=== PATIENT | female | born 1995 | race Caucasian/White ===

== ENCOUNTER 2020-01-02 09:16 | Emergency (ER) | payer BC, SELFPAY ==
--- NOTE | ~2020-01-02 | XR_ITS ---
EXAMINATION: XR chest 2V DATE: 01/02/2020 10:06 INDICATION: Shortness of breath and cough. TECHNIQUE: Frontal and lateral views of the chest were obtained. COMPARISON: Chest 2 views 10/02/2018 FINDINGS: The chest demonstrates clear lungs without pneumonia, pleural effusion, or pneumothorax. Th e heart size is normal. There is an old healed left rib fracture. IMPRESSION: 1. No acute cardiopulmonary disease. Reviewed, dictated and finalized at location A.
[2020-01-02 09:30] VITALS: BP 140/77; PULSE 110; RESP 22; TEMP 37.3; O2SAT 98
--- NOTE | 2020-01-02 09:53 | ED.URI ---
HPI - URI/Sore Throat General Chief Complaint: Upper Respiratory Infection Stated Complaint: Sore throat, SOB, fever Time Seen by Provider: 01/02/20 09:38 Source: patient and RN notes reviewed Mode of arrival: ambulatory Limitations: no limitations History of Present Illness HPI Narrative: Patient presents today with a 5-day history of low-grade fever with a T-max of 100.1, frontal headache and sinus pressure with mild productive cough. Patient reports that occasionally she has, black specks in her sputum. Also complains of a 2-day history of sore throat. States she became short of breath with exertion yesterday. She has been taking Tylenol without relief. Denies history of seasonal allergies. Reports exercise-induced asthma, migraines, anxiety, and bipolar disorder. Patient states she was exposed to a child of a coworker that recently tested positive for COVID-19. MD elicited complaint: sore throat Related Data Home Medications Medication Instructions Recorded Confirmed L norgest/e.estradiol-e.estrad 1 tablet PO DAILY 01/02/20 01/02/20 [Rivelsa] nortriptyline 10 mg PO DAILY 01/02/20 01/02/20 Allergies Allergy/AdvReac Type Severity Reaction Status Date / Time azithromycin Allergy Intermediate Rash Verified 01/02/20 09:36 Review of Systems Review of Systems: Narrative: CONSTITUTIONAL: Denies body aches, chills, or sweats.+ Fever EYES: Denies visual changes, redness, or discharge. ENT: Denies rhinorrhea, otalgia. + Congestion, sinus pressure CARDIOVASCULAR: Denies chest pain, palpitations, or edema. RESPIRATORY: + Cough, shortness of breath with exertion GASTROINTESTINAL: Denies abdominal pain, nausea, vomiting, or diarrhea. GENITOURINARY: Denies dysuria or hematuria. SKIN: Denies rash, itching, or wounds. MUSCULOSKELETAL: Denies back pain, joint pain, or myalgia. NEUROLOGIC: Denies numbness, tingling, or weakness. + Headache PSYCH: Denies depression or anxiety. [facility] Past Medical History Medical History (Updated 01/02/20 @ 10:22 by Nidhi Ramirez, DOCUMENT CONTROL MANAGER, BC) Anxiety Bipolar disorder Exercise-induced asthma Migraines Comments At time of signature, I have reviewed and agree with nursing past medical, surgical, social and family history unless otherwise noted. Please see nursing chart for further information. There is no relevant family history pertinent to the presenting complaint Exam Narrative: Exam Narrative: GENERAL: Well-appearing, well-nourished, and in no acute distress. HEAD: Normocephalic, atraumatic. EYES: EOMI. No redness or drainage. Conjunctivae normal. ENT: Mucous membranes pink and moist. Nares clear. No rhinorrhea. TMs normal bilaterally. Throat normal with moderate amount of white postnasal drainage. Uvula midline. NECK: Normal AROM. Supple. No lymphadenopathy. CHEST: No respiratory distress. Clear to auscultation. HEART: Regular rate and rhythm. No murmur appreciated. Normal peripheral pulses. EXTREMITIES: Normal range of motion. No edema. SKIN: Warm, dry, no rash. Capillary refill normal. Normal skin turgor. NEURO: No focal deficits. Alert and oriented x3. Gait steady. PSYCH: Normal affect. No signs of depression or anxiety. Course Course Emergency Course: We will fax an order to [facility] COVID-19 testing director federal. Due to recent exposure and symptoms, patient may have a possible COVID-19 infection. Signs and symptoms discussed with patient. Patient educated to self-isolate in a room in his/her home away from others they live with. Use mask if available. Patient was advised not to leave house for any reason ? Self-treatment discussed including Tylenol for fever, pain, or myalgia, and cough cold medications for symptoms. Patient to check temperature daily and monitor for symptoms of respiratory distress. Patient should check in daily with primary care office/system via phone/virtual platform ? Nature of the disease to cause severe respiratory distress
--- NOTE | 2020-01-02 10:56 | PC.NURSE ---
1030 noted following discharge pt stated she may not go for covid-testing at this time as insructed/ordered.
== END 2020-01-02 10:25 | disposition home or self-care (01) ==
PROVIDERS: Emergency Provider Nurse Practitioner
DX: J40 Bronchitis, not specified as acute or chronic (principal); J30.9 Allergic rhinitis, unspecified; Z20.828 Contact with and (suspected) exposure to other viral communicable diseases; J45.990 Exercise induced bronchospasm; F31.9 Bipolar disorder, unspecified
CPT/HCPCS: 71046; 87081; 87880; 99213; G0463

== ENCOUNTER 2020-04-15 11:15 | Emergency (ER) | payer BC, SELFPAY ==
--- NOTE | ~2020-04-15 | XR_ITS ---
EXAMINATION: XR abdomen/kub 1V INDICATION: Constipation and left lower quadrant pain TECHNIQUE: Supine views of the abdomen were obtained on 2 radiographs. COMPARISON: None FINDINGS: A moderate volume of colonic stool is present. There are no dilated loops of bowel. The vis ualized osseous structures are unremarkable. No abnormal calcifications are identified. IMPRESSION: 1. Constipation. Reviewed, dictated and finalized at location A. OY OPERATOR IMPRESSION: 1. Constipation.
[2020-04-15 11:35] VITALS: BP 180/92; PULSE 154; RESP 14; TEMP 37.5; O2SAT 100
--- NOTE | 2020-04-15 12:28 | ED.ABDPAIN ---
HPI - Abdominal Pain General Chief Complaint: Abdominal Pain Stated Complaint: abd pain Time Seen by Provider: 04/15/20 12:19 Source: patient and RN notes reviewed Mode of arrival: ambulatory Limitations: no limitations History of Present Illness HPI narrative: Patient presents today complaining of left-sided abdominal pain intermittently x2 weeks, worse this morning. States that she has had 2 episodes where she is doubled over in pain. She has bowel movements every day, most of which are very hard. Typically pain resolves when she has a bowel movement, but then returns later. She has been taking Tylenol for pain, which does help. Reports a history of irritable bowel syndrome in her family, but she has never been formally diagnosed. MD elicited complaint: abdominal pain Related Data Home Medications Medication Instructions Recorded Confirmed L norgest/e.estradiol-e.estrad 1 tablet PO DAILY 01/02/20 01/02/20 [Rivelsa] nortriptyline 10 mg PO DAILY 01/02/20 01/02/20 tramadol 50 mg PO Q4H PRN 04/15/20 04/15/20 Allergies Allergy/AdvReac Type Severity Reaction Status Date / Time azithromycin Allergy Intermediate Rash Verified 01/02/20 09:36 Review of Systems Review of Systems: Narrative: CONSTITUTIONAL: Denies body aches, fever, chills, or sweats. EYES: Denies visual changes, redness, or discharge. ENT: Denies rhinorrhea, congestion, sore throat, or otalgia. CARDIOVASCULAR: Denies chest pain, palpitations, or edema. RESPIRATORY: Denies cough or dyspnea. GASTROINTESTINAL: Denies nausea, vomiting, or diarrhea.+ Abdominal pain, constipation GENITOURINARY: Denies dysuria or hematuria. SKIN: Denies rash, itching, or wounds. MUSCULOSKELETAL: Denies back pain, joint pain, or myalgia. NEUROLOGIC: Denies headache, numbness, tingling, or weakness. PSYCH: Denies depression or anxiety. [facility] Past Medical History Medical History (Updated 04/15/20 @ 13:01 by Nidhi Ramirez, PACKAGE DRIER, ) Anxiety Bipolar disorder Exercise-induced asthma Migraines Comments At time of signature, I have reviewed and agree with nursing past medical, surgical, social and family history unless otherwise noted. Please see nursing chart for further information. There is no relevant family history pertinent to the presenting complaint Exam Narrative: Exam Narrative: GENERAL: Well-appearing, well-nourished, and in no acute distress. HEAD: Normocephalic, atraumatic. EYES: EOMI. No redness or drainage. Conjunctivae normal. ENT: Mucous membranes pink and moist. NECK: Normal AROM. Supple. No lymphadenopathy. CHEST: No respiratory distress. Clear to auscultation. HEART: Regular rate and rhythm. No murmur appreciated. Normal peripheral pulses. ABDOMEN: Soft, nondistended, normal active bowel sounds. + Left abdominal tenderness. MUSCULOSKELETAL: No bony tenderness. EXTREMITIES: Normal range of motion. No edema. SKIN: Warm, dry, no rash. Capillary refill normal. Normal skin turgor. NEURO: No focal deficits. Alert and oriented x3. Gait steady. PSYCH: Normal affect. No signs of depression or anxiety. Course Vital Signs Vital signs: Vital Signs Temperature 99.5 F 04/15/20 11:35 Pulse Rate 154 H 04/15/20 11:35 Respiratory Rate 14 04/15/20 11:35 Blood Pressure 180/92 H 04/15/20 11:35 Pulse Oximetry 100 04/15/20 11:35 Temperature 99.5 F 04/15/20 11:35 Pulse Rate 100 04/15/20 12:36 Respiratory Rate 18 04/15/20 12:36 Blood Pressure 128/76 04/15/20 12:36 Pulse Oximetry 100 04/15/20 11:35 Reviewed. Pt has been instructed to follow up with her PCP regarding her elevated blood pressure today. MDM - Abdominal Pain Differential Diagnosis Differential diagnosis: Likely abdominal pain, constipation, diverticulitis and other (Irritable bowel syndrome) Imaging Data Radiologist's impression: ITS Impressions Abdomen X-Ray 04/15/20 12:50 IMPRESSION: 1. Constipation. Critical Care Time Critical Care T
[2020-04-15 12:36] VITALS: BP 128/76; PULSE 100; RESP 18
== END 2020-04-15 13:05 | disposition home or self-care (01) ==
PROVIDERS: Emergency Provider Nurse Practitioner; PCP Emergency Medicine
DX: K59.00 Constipation, unspecified (principal); J45.990 Exercise induced bronchospasm
CPT/HCPCS: 74018; 99213; G0463

== ENCOUNTER 2022-02-14 12:31 | Emergency (ER) | payer OTHER, BC, SELFPAY ==
--- NOTE | ~2022-02-14 | XR_ITS ---
EXAMINATION: XR hand RT min 3V DATE: 02/14/2022 12:52 INDICATION: Right hand swelling post fall TECHNIQUE: Posteroanterior, oblique and lateral views of the right hand were obtained. COMPARISON: None. FINDINGS: Bone alignment is normal. Small calcific density along the radial margin of the base of the third pro ximal phalanx without evident donor site to suggest acute fracture in this more likely either a small degenerative ossicle or heterotopic ossification related to chronic injury to the radial collateral ligament. No other lesions suspicious for fracture identified. Joint spaces are normal. Mild soft tis briana swelling over the dorsum of the hand. IMPRESSION: 1. Tiny calcific density at the radial side of the base of the third proximal phalanx without evident donor site to suggest acute fracture and would favor either degenerative loose body or heterotopic o ssification related to chronic injury to the radial collateral ligament complex. Reviewed, dictated and finalized at location A. IMPRESSION: 1. Tiny calcific density at the radial side of the base of the third proximal p halanx without evident donor site to suggest acute fracture and would favor eit her degenerative loose body or heterotopic ossification related to chronic inju ry to the radial collateral ligament complex.
[2022-02-14 12:43] VITALS: BP 125/79; PULSE 101; RESP 16; TEMP 36.6; O2SAT 99
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
== END 2022-02-14 14:25 | disposition home or self-care (01) ==
PROVIDERS: Emergency Provider Nurse Practitioner; PCP Emergency Medicine
DX: S62.91XA Unspecified fracture of right hand, initial encounter for closed fracture (principal); W19.XXXA Unspecified fall, initial encounter; J45.990 Exercise induced bronchospasm; F41.9 Anxiety disorder, unspecified
CPT/HCPCS: 29125; 73130; 99214; G0463

== ENCOUNTER 2022-02-17 09:39 | Emergency (ER) | payer BC, SELFPAY ==
[2022-02-17 09:41] VITALS: BP 130/93; PULSE 100; RESP 16; TEMP 36.2; O2SAT 100
--- NOTE | 2022-02-17 11:55 | ED.GENADULT ---
HPI - General Adult General Chief complaint: Extremity Injury, Upper Stated complaint: fractured right hand, OCL, numbness Time Seen by Provider: 02/17/22 10:54 History of Present Illness HPI narrative: 26-year-old female presents to the emergency department for evaluation of some tingling to her right thumb. Patient states that she does have a fracture of her right hand. Patient does have an OCL and Donavon wrap in place. Patient denies any worsening pain but states that she had some tingling in her thumb so she presented to the emergency department for evaluation and per her discharge instructions. Related Data Home Medications Medication Instructions Recorded Confirmed escitalopram oxalate 10 mg tablet 10 mg PO DAILY 02/14/22 02/14/22 norethindrone (contraceptive) 0.35 0.35 mg PO DAILY 02/14/22 02/14/22 mg tablet venlafaxine 150 mg 150 mg PO DAILY 02/14/22 02/14/22 capsule,extended release 24 hr Allergies Allergy/AdvReac Type Severity Reaction Status Date / Time azithromycin Allergy Intermediate Rash Verified 02/17/22 10:48 buprenorphine Allergy Other Verified 02/17/22 10:48 Review of Systems Review of Systems: CONSTITUTIONAL: Denies fever, chills, or sweats. SKIN: Denies rash or itching. MUSCULOSKELETAL: See HPI NEUROLOGIC: Denies headache, numbness, or weakness. [facility] Past Medical History Medical History Anxiety Bipolar disorder Exercise-induced asthma Migraines Social History Social History (Updated 02/14/22 @ 13:27 by Elba Castaneda CNP) Smoking status: Never smoker Alcohol intake: never Exam Narrative: APPEARANCE: Well appearing, no pain, no distress, well-nourished. HEAD: normocephalic, atraumatic. NECK: Supple. No adenopathy, no masses. RESPIRATORY: Airway patent, respirations nonlabored. Clear to auscultation bilaterally, no rales, rhonchi, wheezing. CARDIOVASCULAR: Regular rate and rhythm without murmurs rubs or gallops. ABDOMINAL: Soft, nontender, nondistended, normal bowel sounds MUSCULOSKELETAL: Moves all extremities. Normal cap refill. Subjective decrease sensation of the thumb. Normal range of motion. Increase to light touch. NEURO: Alert. Cranial nerves II through XII intact. Grossly intact SKIN: Warm, dry. Normal Color Course Course Emergency Course: Donavon wrap was removed. Patient does have some subjective decrease sensation over the left thumb but denies any other numbness or tingling. Patient is intact to light touch. Patient has strong cap refills for all fingers. Patient's DONAVON wraps were replaced and patient was encouraged to have close follow-up as scheduled. Vital Signs Vital signs: Vital Signs Temperature 97.2 F L 02/17/22 09:41 Pulse Rate 100 02/17/22 09:41 Respiratory Rate 16 02/17/22 09:41 Blood Pressure 130/93 H 02/17/22 09:41 Pulse Oximetry 100 02/17/22 09:41 Oxygen Delivery Room Air 02/17/22 09:41 Temperature 97.2 F L 02/17/22 09:41 Pulse Rate 100 02/17/22 09:41 Respiratory Rate 16 02/17/22 09:41 Blood Pressure 130/93 H 02/17/22 09:41 Pulse Oximetry 100 02/17/22 09:41 Oxygen Delivery Room Air 02/17/22 09:41 Medical Decision Making Vital Signs Vital Signs: Vital Signs Temperature 97.2 F L 02/17/22 09:41 Pulse Rate 100 02/17/22 09:41 Respiratory Rate 16 02/17/22 09:41 Blood Pressure 130/93 H 02/17/22 09:41 Pulse Oximetry 100 02/17/22 09:41 Oxygen Delivery Room Air 02/17/22 09:41 Temperature 97.2 F L 02/17/22 09:41 Pulse Rate 100 02/17/22 09:41 Respiratory Rate 16 02/17/22 09:41 Blood Pressure 130/93 H 02/17/22 09:41 Pulse Oximetry 100 02/17/22 09:41 Oxygen Delivery Room Air 02/17/22 09:41 Discharge Plan Discharge Clinical Impression: Numbness and tingling of right thumb Patient Disposition: Home, Self-Care Condition: Stable Instructions: Antibiotic Form, Arm Fracture in Adults (ED), Splint
== END 2022-02-17 12:05 | disposition home or self-care (01) ==
PROVIDERS: Emergency Provider Emergency Medicine; PCP Emergency Medicine
DX: R20.2 Paresthesia of skin (principal); S62.91XD Unspecified fracture of right hand, subsequent encounter for fracture with routine healing; X58.XXXD Exposure to other specified factors, subsequent encounter; F31.9 Bipolar disorder, unspecified; F41.9 Anxiety disorder, unspecified
CPT/HCPCS: 99282

== ENCOUNTER 2022-03-17 08:05 | Emergency (ER) | payer BC, SELFPAY ==
[2022-03-17 08:10] VITALS: BP 133/82; PULSE 101; RESP 20; TEMP 36.9; O2SAT 100
--- NOTE | 2022-03-17 08:24 | ED.URI ---
HPI - URI/Sore Throat General Chief Complaint: Upper Respiratory Infection Stated Complaint: sore throat, coughing, vomiting, trouble breathing Time Seen by Provider: 03/17/22 08:24 Source: patient and RN notes reviewed Mode of arrival: ambulatory Limitations: no limitations History of Present Illness HPI Narrative: 26 y/o female presented for c/o sore throat starting yesterday. Endorses post nasal drainage, subjective fever, and had a deep cough in night productive of white mucous. She took 2 negative covid tests yesterday. She has not taken anything for symptoms. Denies n/v/d. MD elicited complaint: cough Related Data Home Medications Medication Instructions Recorded Confirmed escitalopram oxalate 10 mg tablet 10 mg PO DAILY 02/14/22 03/05/22 venlafaxine 150 mg 150 mg PO DAILY 02/14/22 03/05/22 capsule,extended release 24 hr Allergies Allergy/AdvReac Type Severity Reaction Status Date / Time azithromycin Allergy Intermediate Rash Verified 03/17/22 08:25 Latex, Natural Rubber Allergy Intermediate Rash Verified 03/17/22 08:25 buprenorphine Allergy Other Verified 03/17/22 08:25 Review of Systems Review of Systems: CONSTITUTIONAL: Endorses malaise, chills, sweats, fever EYES: Denies visual changes, redness, or discharge ENT: Reports rhinorrhea, congestion, sore throat CARDIOVASCULAR: Denies chest pain, palpitations, edema RESPIRATORY: Reports cough, post nasal drainage. Denies dyspnea GASTROINTESTINAL: Denies abdominal pain, nausea, vomiting, diarrhea MUSCULOSKELETAL: Endorses myalgia NEUROLOGIC: Denies headache PMFSH Past Medical History Medical History Allergies Anxiety Asthma Bipolar disorder Depression Exercise-induced asthma GERD (gastroesophageal reflux disease) Headache IBS (irritable bowel syndrome) Migraines Surgical History Surgical History History of neck surgery Family History Family History Sibling Asthma Depression Father Cancer Diabetes mellitus Hypertension Depression Cerebrovascular accident Mother Cancer Depression Heart disease Thyroid disorder Grandparent Cancer Diabetes mellitus Hypertension Depression Other Depression Social History Social History Smoking status: Never smoker Alcohol intake: current Substance use: current Exam Narrative: GENERAL: Ill-appearing, nontoxic EYES: PERRLA, conjunctivae clear ENT: Mucous membranes moist. TM pearly ballard with dull light reflex bilaterally; no tragal tenderness. Oropharynx erythematous without lesions or exudate, no drooling, no hoarseness, no trismus, uvula midline. No tripod positioning, muffled voice, soft palate or pharyngeal wall bulging NECK: Supple. No lymphadenopathy CHEST: Clear to auscultation, breath sounds equal. No wheezing, rhonchi, rales, or stridor. No respiratory distress, speaks in full sentences. HEART: Regular rate and rhythm. No murmur heard. SKIN: Warm, dry, no rash. NEURO: Alert and oriented x3. Course Course Emergency Course: Patient is aware of diagnosis, understands and agrees to treatment plan. Anticipatory guidance given. Patient agrees to follow-up as directed and is aware of reasons to seek care at the emergency department. Portions of this record may have been created with voice recognition software Level of Care: Express Care Visit Vital Signs Vital signs: Vital Signs Temperature 98.4 F 03/17/22 08:10 Pulse Rate 101 H 03/17/22 08:10 Respiratory Rate 20 03/17/22 08:10 Blood Pressure 133/82 03/17/22 08:10 Pulse Oximetry 100 03/17/22 08:10 Oxygen Delivery Room Air 03/17/22 08:10 Temperature 98.4 F 03/17/22 08:10 Pulse Rate 101 H 03/17/22 08:10 Respiratory Rate 20 03/17/22 08:10 Blood Pressure
== END 2022-03-17 09:04 | disposition home or self-care (01) ==
PROVIDERS: Emergency Provider Nurse Practitioner Family; PCP Emergency Medicine
DX: J30.2 Other seasonal allergic rhinitis (principal); J45.909 Unspecified asthma, uncomplicated; K21.9 Gastro-esophageal reflux disease without esophagitis; F41.9 Anxiety disorder, unspecified; F32.A Depression, unspecified
CPT/HCPCS: 87081; 87880; 99213; G0463

== ENCOUNTER 2022-09-01 09:37 | Emergency (ER) | payer SELFPAY ==
[2022-09-01 10:12] VITALS: BP 125/78; PULSE 99; RESP 16; TEMP 36.6; O2SAT 100
--- NOTE | 2022-09-01 11:18 | ED.URI ---
HPI - URI/Sore Throat General Chief Complaint: Upper Respiratory Infection Stated Complaint: sore throat Time Seen by Provider: 09/01/22 11:18 Source: patient and RN notes reviewed Mode of arrival: ambulatory Limitations: no limitations History of Present Illness HPI Narrative: 27-year-old female presents with concern for sore throat, fever, cough, runny nose started yesterday. She reports exposure to strep throat at work. MD elicited complaint: sore throat Related Data Allergies Allergy/AdvReac Type Severity Reaction Status Date / Time azithromycin Allergy Intermediate Rash Verified 04/16/22 07:47 Latex, Natural Rubber Allergy Intermediate Rash Verified 04/16/22 07:47 buprenorphine Allergy Other Verified 04/16/22 07:47 Review of Systems Review of Systems: CONSTITUTIONAL: Reports malaise, fever. EYES: Denies visual changes, redness, or discharge. ENT: Reports rhinorrhea, congestion, sore throat. Denies sinus pain, otalgia CARDIOVASCULAR: Denies chest pain, palpitations, or edema. RESPIRATORY: Denies cough. Denies dyspnea. GASTROINTESTINAL: Denies abdominal pain, nausea, vomiting, diarrhea SKIN: Denies rash or itching. MUSCULOSKELETAL: Reports myalgia. NEUROLOGIC: Denies headache. All systems reviewed & are unremarkable except as noted in HPI and below PMFSH Past Medical History Medical History Allergies Anxiety Asthma Bipolar disorder Depression Exercise-induced asthma GERD (gastroesophageal reflux disease) Headache IBS (irritable bowel syndrome) Migraines Surgical History Surgical History History of neck surgery Family History Family History Sibling Asthma Depression Father Cancer Diabetes mellitus Hypertension Depression Cerebrovascular accident Mother Cancer Depression Heart disease Thyroid disorder Grandparent Cancer Diabetes mellitus Hypertension Depression Other Depression Social History Social History Smoking status: Never smoker Alcohol intake: current Substance use: current Living arrangements: with family Comments At time of signature, agree with nursing past medical, surgical, social and family history. There is no relevant family history pertinent to the presenting complaint Exam Narrative: GENERAL: Nontoxic-appearing and in no acute distress. HEAD: Normocephalic EYES: PERRLA, conjunctivae clear ENT: Nares clear, turbinates edematous and erythematous, clear discharge. Mucous membranes moist. TM pearly ballard with dull light reflex bilaterally; no tragal tenderness. Oropharynx erythematous without lesions. Tonsils enlarged and without exudate, no drooling, no hoarseness, no trismus, uvula midline. NECK: Supple. No lymphadenopathy CHEST: Clear to auscultation, breath sounds equal. No wheezing, rhonchi, rales, or stridor. No respiratory distress, speaks in full sentences. HEART: Regular rate and rhythm. No murmur heard. SKIN: Warm, dry, no rash. NEURO: Alert and oriented x3. PSYCH: Normal mood and affect Course Course Emergency Course: Patient is aware of diagnosis, understands and agrees to treatment plan. Anticipatory guidance given. Patient agrees to follow-up as directed and is aware of reasons to seek care at the emergency department. Portions of this record may have been created with voice recognition software Level of Care: Express Care Visit Vital Signs Vital signs: Vital Signs Temperature 97.9 F 09/01/22 10:12 Pulse Rate 99 09/01/22 10:12 Respiratory Rate 16 09/01/22 10:12 Blood Pressure 125/78 09/01/22 10:12 Pulse Oximetry 100 09/01/22 10:12 Oxygen Delivery Room Air 09/01/22 10:12 Temperature 97.9 F 09/01/22 10:12 Pulse Rate 99 09/01/22 10:12 Respiratory Rate 16 09/01/22 10:
== END 2022-09-01 11:28 | disposition home or self-care (01) ==
PROVIDERS: Emergency Provider Nurse Practitioner; PCP Emergency Medicine
DX: J03.90 Acute tonsillitis, unspecified (principal); J45.909 Unspecified asthma, uncomplicated; K21.9 Gastro-esophageal reflux disease without esophagitis; J45.990 Exercise induced bronchospasm
CPT/HCPCS: 87081; 87880; 99213; G0463